=== PATIENT | male | born 1985 | race Caucasian/White ===

== ENCOUNTER 2025-08-20 10:01 | Outpatient (CLI) | payer OTHER, SELFPAY ==
--- NOTE | ~2025-08-20 | MR_ITS ---
EXAMINATION: MR ankle RT wo con DATE: 08/20/2025 10:38 INDICATION: Arthritis. Instability. TECHNIQUE: Magnetic resonance imaging (MRI) of the right ankle was performed without intravenous contrast. Sequences included sagittal, coronal, and axial proton-density weighted fast spin echo without and with fat saturation. COMPARISON: None. FINDINGS: Medial ankle ligaments: Deep and superficial deltoid ligaments as well as the spring ligament are normal. Lateral ankle ligaments: The anterior and posterior inferior tibiofibular ligaments are normal. The anterior talofibular, calcaneofibular and posterior talofibular ligaments are normal. Tendons: Achilles tendon is normal. The peroneus longus and brevis tendons are normal. The tibialis anterior and extensor hallucis longus and extensor digitorum longus tendons are normal. The tibialis posterior, flexor digitorum longus and flexor hallucis longus tendons are normal. Plantar fascia: Normal plantar aponeurosis. Bones/other: Bone alignment is normal. There is chondral ulceration and fissuring along the medial and lateral margins of the talar dome. There is minimal subarticular edema-like signal change along the lateral rim of the talar dome. There is prominent subarticular edema-like signal change and mild cystic change along the medial rim of the talar dome. Additional mild osteoarthritis at the second and third tarsal metatarsal joints and mild subarticular cystlike change at the plantar distal articular surface of the middle cuneiform. There are couple low signal intensity bone islands at the posterior calcaneus. Marrow signal is otherwise normal throughout. No fracture or pathologic marrow replacing process. Fluid: Physiologic amount fluid in the joint spaces. No abnormal fluid collections. IMPRESSION: 1. 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 2. Additional mild osteoarthritis at the second and third tarsal metatarsal joints. Reviewed, dictated and finalized at location A. IMPRESSION: 1. 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 2. Additional mild osteoarthritis at the second and third tarsal metatarsal scottie nts.
== END 2025-08-20 10:02 | disposition home or self-care (01) ==
PROVIDERS: PCP Podiatrist Foot & Ankle Surgery; Visit Provider Podiatrist Foot & Ankle Surgery
DX: M19.071 Primary osteoarthritis, right ankle and foot (principal); M25.371 Other instability, right ankle; M94.271 Chondromalacia, right ankle and joints of right foot
CPT/HCPCS: 73721